=== PATIENT | female | born 1965 | race Caucasian/White ===

== ENCOUNTER 2016-10-01 21:48 | Observation (INO) ==
[2016-10-01] MEDS ORDERED: 0.9 % Sodium Chloride 1,000 ML IVC ONE (22:17)
[2016-10-01] MEDS ORDERED: Aspirin 325 MG TABLET PO ONE (22:17)
--- NOTE | 2016-10-01 22:20 | Emergency Department Note ---
Disposition Clinical Impression: Cerebrovascular accident Qualifiers: CVA mechanism: unspecified Qualified Code(s): I63.9 - Cerebral infarction, unspecified Disposition: Admitted As Inpatient Condition: Undetermined Time of Disposition: 23:40 Neuro HPI - General Chief Complaint: ED Neuro Symptoms/Deficit Stated Complaint: "Hx of Stroke/Feels Numb on R Side of Face/Arm" Time Seen by Provider: 10/01/16 22:10 Source: patient Mode of arrival: ambulatory Limitations: no limitations Nursing Notes Reviewed: Yes Vital Signs Reviewed: Yes - History of Present Illness HPI Narrative: 51-year-old female with history of CVA, multiple TIAs, arrives to [facility] emergency department complaining of right facial numbness, facial droop, slurring of speech, right upper extremity numbness and not a sharp feeling that started at 10:30 AM this morning when she woke up. Last known well was 8 AM this morning. The patient stated that she took her daily aspirin afterward. She arrives to [facility] emergency department with concerns for possible CVA. The patient has never received TPA in the past. The patient states her only deficits from previous CVA is "not quite as sharp" in her decision-making capacity. The patient denies any other complaints at this time. She is answering questions appropriately. She does have an obvious right facial droop and lack of blinking on the right eye, in addition the patient has decreased sensation in her right upper extremity only. The patient has good muscle strength in bilateral upper and lower extremities. The patient is not a TPA candidate due to the amount of time before being seen in the emergency department. Over 12 hours. Onset of Symptoms Date: 10/01/16 Onset of Symptoms Time: 10:30 Symptom Onset Unknown: No Location: speech, right face, right arm History of same: Yes Severity: moderate Quality: numbness Symptoms Improving: Yes Improves with: time Context: sudden onset On Anticoagulants: No Associated symptoms: Reports: denies other symptoms Treatments Prior to Arrival: none - Related Data Home Medications: Home Medications Medication Instructions Recorded Confirmed Aspirin 325 mg PO DAILY 02/12/15 08/28/15 Meloxicam [Mobic] 7.5 mg PO DAILY 02/12/15 08/28/15 Metaxalone [Skelaxin] 800 mg PO QID PRN 02/12/15 08/28/15 Atorvastatin [Lipitor] 10 mg PO DAILY 07/10/15 08/28/15 Previous Rx's Medication Instructions Recorded Hydrocodone/Acetaminophen [[place] 1 tab PO Q6H PRN #8 tab 08/21/15 5-325 Tablet] Allergies/Adverse Reactions: Allergies Allergy/AdvReac Type Severity Reaction Status Date / Time ibuprofen [From Motrin] Allergy Swelling Verified 08/20/15 09:54 of Lip/Tongue/Throat Latex, Natural Rubber Allergy Rash Verified 08/28/15 09:24 Silicone Allergy Rash Verified 08/28/15 09:24 All systems ED: reviewed and negative except as stated. Constitutional: Denies: fever, chills, weakness, weight change Eyes: Denies: eye pain, eye discharge, vision change ENT ED: Denies: ear pain, throat pain, dental pain, hearing loss, epistaxis, congestion, dysphagia Cardiovascular: Denies: chest pain, palpitations, dyspnea on exertion, edema, syncope Respiratory: Denies: cough, dyspnea, wheezes, hemoptysis, stridor Gastrointestinal: Denies: abdominal pain, nausea, vomiting, diarrhea, constipation, hematemesis, melena, hematochezia Musculoskeletal: Denies: back pain, neck pain, arthralgia, myalgia Integumentary: Denies: rash, abrasion, lesions Neurological: Reports: numbness. Denies: headache, weakness, paresthesias, confusion, abnormal gait, vertigo Past Medical History - Past Medical History Attestation: Yes The following information was validated with the patient. 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 - Social History Smoking Status: Current every day smoker Smokeless Tobacco Status: No Alcohol use: Reports: none Drug use: Reports: none Physical Exam - General Limitations: no limitations General appearance: alert, in no apparent distress - Head Head exam: atraumatic, normocephalic, normal inspection - Eye Eye exam: Present: PERRL, EOMI, other (Ptosis of right eye) - ENT ENT exam: other (Right sided facial droop) - Chest Chest inspection: Present: normal inspection, symmetric chest wall rise - Respiratory Respiratory exam: Present: normal lung sounds bilaterally - Cardiovascular Cardiovascular exam: Present: regular rate, normal rhythm, normal heart sounds - Abdominal Exam Abdominal exam: Present: soft, Non-Tender. Absent: tenderness, distention, guarding, rebound, rigidity - Extremities Exam Extremities exam: Present: normal inspection, full ROM. Absent: tenderness, pedal edema - Back Exam Back exam: Present: normal inspection, full ROM. Absent: tenderness - Neurological Exam Neurological exam: Present: alert, oriented X3 - Expanded Neurological Exam Patient oriented to: Present: person, place, time Speech: Present: fluid speech Cranial nerves: EOM function (II, III, IV, ): Abnormal Right, facial sensation (V): Abnormal Right, facial palsy (VII): Abnormal Right, gag reflex ( IX): Normal, spinal accessory function (XI): Normal, tongue deviation (XII): Normal Cerebellar function: finger to nose: Normal Cerebellar function: normal gait Motor strength - LUE: 5/5 Motor strength - RUE: 5/5 Motor strength - LLE: 5/5 Motor strength - RLE: 5/5 Upper motor neuron exam: sandoval neglect: Absent bilaterally Sensory exam upper extremity: light touch: Abnormal Right Sensory exam lower extremity: light touch: Normal Coma Scale Eye Opening: Spontaneous Coma Scale Motor Response: Obeys Commands Coma Scale Verbal Response: Oriented Coma Scale Total: 15 - Psychiatric Psychiatric exam: Present: normal affect, normal mood - Skin Skin exam: Present: warm, dry, intact, normal color Course Vital Signs Temperature 98.1 F 10/01/16 22:02 Pulse Rate 82 10/01/16 22:02 Respiratory Rate 16 10/01/16 22:02 Blood Pressure 138/86 10/01/16 22:02 O2 Sat by Pulse Oximetry 96 10/01/16 22:02 Temperature 98.1 F 10/01/16 22:02 Pulse Rate 82 10/01/16 22:02 Respiratory Rate 16 10/01/16 22:02 Blood Pressure 138/86 10/01/16 22:02 O2 Sat by Pulse Oximetry 96 10/01/16 22:02 Oxygen Delivery Oxygen Delivery Room Air Neuro Symptoms/Deficit - MDM Narrative Medical decision making narrative: Patient appears to have a CVA. No other acute findings noted. We will admit the patient to the hospitalist. The patient is unable to take by mouth aspirin given her dysphagia screen failure. The patient did take 25 mg aspirin earlier today. Patient accepted by Dr. Gage. - Medical Records Medical records reviewed: Yes I reviewed the patient's medical records. - Lab Data Lab results reviewed: Yes I reviewed the patient's lab results. Result diagrams: 10/01/16 22:55 10/01/16 22:55 Lab Results 10/01/16 10/01/16 10/01/16 Range/Units 22:04 22:55 22:55 WBC 8.3 (4.3-11.1) K/mcL RBC 3.99 (3.82-4.97) M/mcL Hgb 12.4 (11.5-15.4) g/dL Hct 36.3 (35.3-44.9) % MCV 91.0 (83.0-100.0) fL MCH 31.1 (28.0-33.3) pg MCHC 34.2 (31.6-35.5) g/dL RDW 13.0 (11.5-14.5) % Plt Count 181 (140-400) K/mcL MPV 10.0 (9.4-12.4) fL Immature Gran % 0.1 (0-4) % Seg Neutrophils % 53.0 % Lymphocytes % 37.7 % Monocytes % 6.2 % Eosinophils % 2.3 % Basophils % 0.7 % Neutrophils # 4.4 (1.6-8.9) K/mcL Lymphocytes # 3.1 (0.6-4.6) K/mcL Monocytes # 0.5 (0.0-1.3) K/mcL Eosinophils # 0.2 (0.0-0.6) K/mcL Basophils # 0.1 (0.0-0.2) K/mcL PT 11.5 (9.4-12.1) Seconds INR 1.1 APTT 30.2 (26.0-36.0) Seconds Sodium (136-145) mEq/L Potassium (3.5-4.5) mEq/L Chloride (98-109) mEq/L Carbon Dioxide (19-29) mEq/L BUN (7-20) mg/dL Creatinine (0.57-1.11) mg/dL Est GFR ( Amer) (> 60) Est GFR (Non-Af Amer) (> 60) BUN/Creatinine Ratio (6-26) Glucose (70-99) mg/dL POC Glucose 93 H (58-89) Calculated Osmolality (280-300) Calcium (8.6-10.8) mg/dL Total Bilirubin (0.2-1.2) mg/dL AST (5-34) Units/L ALT (0-55) Units/L Alkaline Phosphatase (38-126) Units/L Troponin I (0-0.03) ng/mL Serum Total Protein (6.0-8.3) g/dL Albumin (3.5-5.0) g/dL Globulin (2.4-3.5) g/dL Albumin/Globulin Ratio (1.1-2.2) 10/01/16 10/01/16 Range/Units 22:55 22:55 WBC (4.3-11.1) K/mcL RBC (3.82-4.97) M/mcL Hgb (11.5-15.4) g/dL Hct (35.3-44.9) % MCV (83.0-100.0) fL MCH (28.0-33.3) pg MCHC (31.6-35.5) g/dL RDW (11.5-14.5) % Plt Count (140-400) K/mcL MPV (9.4-12.4) fL Immature Gran % (0-4) % Seg Neutrophils % % Lymphocytes % % Monocytes % % Eosinophils % % Basophils % % Neutrophils # (1.6-8.9) K/mcL Lymphocytes # (0.6-4.6) K/mcL Monocytes # (0.0-1.3) K/mcL Eosinophils # (0.0-0.6) K/mcL Basophils # (0.0-0.2) K/mcL PT (9.4-12.1) Seconds INR APTT (26.0-36.0) Seconds Sodium 142 (136-145) mEq/L Potassium 3.7 (3.5-4.5) mEq/L Chloride 112 H (98-109) mEq/L Carbon Dioxide 22 (19-29) mEq/L BUN 18 (7-20) mg/dL Creatinine 0.76 (0.57-1.11) mg/dL Est GFR ( Amer) > 60 (> 60) Est GFR (Non-Af Amer) > 60 (> 60) BUN/Creatinine Ratio 24 (6-26) Glucose 88 (70-99) mg/dL POC Glucose (58-89) Calculated Osmolality 295 (280-300) Calcium 9.0 (8.6-10.8) mg/dL Total Bilirubin 0.2 (0.2-1.2) mg/dL AST 18 (5-34) Units/L ALT 18 (0-55) Units/L Alkaline Phosphatase 94 (38-126) Units/L Troponin I 0.01 (0-0.03) ng/mL Serum Total Protein 6.2 (6.0-8.3) g/dL Albumin 3.6 (3.5-5.0) g/dL Globulin 2.6 (2.4-3.5) g/dL Albumin/Globulin Ratio 1.4 (1.1-2.2) - Radiology Data Radiology results reviewed: Yes I reviewed the patient's radiology results. - EKG Data EKG attestation: Yes I reviewed and interpreted this EKG. EKG results narrative: Heart rate 73 bpm. SC interval 133 ms. QTc 408 ms. Normal axis. Normal sinus rhythm. No ST elevation or ST depression noted. EKG from 11/27/2015 similar in appearance. No acute changes noted. NIH Stroke Scale - Level of Consciousness LOC: Alert - LOC Questions LOC Questions: Answers both correctly - LOC Commands LOC Commands: Performs both correctly - Best Gaze Best Gaze: Normal - Visual Visual: No visual loss - Facial Palsy Facial Palsy: Partial, total, or near-total paralysis of lower face - Motor Arms Motor Arm-Left: No drift for 10 seconds Motor Arm-Right: No drift for 10 seconds - Motor Legs Motor Leg-Left: No drift for 5 seconds Motor Leg-Right: No drift for 5 seconds - Limb Ataxia Limb Ataxia: Normal, No Ataxia - Sensory Sensory: Mild to moderate loss, "not as sharp" - Best Language Best Language: No aphasia - Dysarthria Dysarthria: Mild, slurs some words - Extinction and Inattention Extinction and Inattention: Normal - NIHSS Total Score NIHSS Total Score: 4 Attestation Statement - Attestation Attestation: I examined this patient and my medical decision-making was reviewed with the SEGMENTAL WALL INSTALLER/PA/Advanced Practice Nurse/Resident Physician. I agree with the documented findings, disposition and treatment plan as described except to the extent set forth below. Patient to ED complaining of right facial numbness tingling in right arm weakness that started while she was taking a nap on the couch this morning. She fell asleep at 8 AM and woke up around 10:30 like that. Symptoms are improving. On examination she has 5 out of 5 strength in bilateral upper extremities. There is no drift. There is no ataxia. She does have a mild droop of the right side of the face. Plan. CT head stroke workup. Likely admission. CT negative. Patient admitted for further stroke workup. Failed dysphagia screening so no aspirin by mouth. Refuses rectal aspirin.
[2016-10-01 23:02] LABS: Basophils # 0.1 K/mcL (0.0-0.2); Basophils % 0.7 %; Eosinophils # 0.2 K/mcL (0.0-0.6); Eosinophils % 2.3 %; Hematocrit 36.3 % (35.3-44.9); Hemoglobin 12.4 g/dL (11.5-15.4); Immature Granulocytes % 0.1 % (0-4); Lymphocytes # 3.1 K/mcL (0.6-4.6); Lymphocytes % 37.7 %; Mean Corpuscular HGB Conc 34.2 g/dL (31.6-35.5); Mean Corpuscular Hemoglobin 31.1 pg (28.0-33.3); Monocytes # 0.5 K/mcL (0.0-1.3); Monocytes % 6.2 %; Neutrophils # 4.4 K/mcL (1.6-8.9); Platelet Count 181 K/mcL (140-400); Red Blood Count 3.99 M/mcL (3.82-4.97)
[2016-10-01 23:07] LABS: INR 1.1; Prothrombin Time 11.5 Seconds (9.4-12.1)
[2016-10-01 23:10] LABS: Activated Partial Thrombo Time 30.2 Seconds (26.0-36.0)
[2016-10-01 23:16] LABS: Alanine Aminotransferase 18 Units/L (0-55); Albumin 3.6 g/dL (3.5-5.0); Albumin/Globulin Ratio 1.4 (1.1-2.2); Alkaline Phosphatase 94 Units/L (38-126); Aspartate Amino Transferase 18 Units/L (5-34); BUN/Creatinine Ratio 24 (6-26); Bilirubin,Total 0.2 mg/dL (0.2-1.2); Blood Urea Nitrogen 18 mg/dL (7-20); Carbon Dioxide 22 mEq/L (19-29); Chloride 112 mEq/L (98-109); Globulin 2.6 g/dL (2.4-3.5); Glucose 88 mg/dL (70-99); Osmolality,Calculated 295 (280-300); Potassium 3.7 mEq/L (3.5-4.5); Sodium 142 mEq/L (136-145); Total Protein 6.2 g/dL (6.0-8.3); eGFR For African Americans > 60 (> 60); eGFR For Non-African Americans > 60 (> 60)
--- NOTE | 2016-10-02 01:16 | Internal Med History&Physical ---
Date of Encounter: 10/02/16 Time of Encounter: 01:15 Assessment and Plan (1) Carotid stenosis, bilateral Current visit: No Status: Acute she had carotid Doppler 2 months ago showing moderate carotid stenosis from 40 to 59% occlusion. 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 And therefore findings are more suggestive "lower motor neuron facial paralysis. Unfortunately patient has a loop recorder averting the ability to perform MRI of the brain. I will start the patient on prednisone 60 mg daily. Onset of symptoms 10 AM this morning after awakening from 2 hour sleep. She will continue on aspirin and Statin. I will ask neurology service for their input. Stroke workup and NIH stroke scale every 4 hours. She mentioned numbness and weakness in the right upper extremity but I could not appreciate any weakness on my exam Internal Medicine - H&P: HPI Chief complaint: CVA symptoms History of present illness: Ms. Remy is a 51 year old female with history of prior TIA/CVA without residual deficits presents to the emergency room today with the main complain of right facial numbness. Patient had a nap at 8 AM this morning woke up at 10 AM to find herself with several complains including numbness on the right side of the face, right facial droop in addition to numbness in the right upper extremity and weakness in the right upper extremity. She mentioned that she dropped a couple things with her right hand. No changes in her gait or speech. Denies any ear pain. She wants also noted by multiple family members that she is having problems closing her right eye. She denies any gait unsteadiness , headache blurry vision or neck pain. No fever chills cough expectoration or urinary symptoms. Past Med Surg Social Fam HX - Past Medical History Medical history: arthritis, cancer, coronary artery disease, CVA, DVT, TIA Psychiatric history: no psych history - Past Surgical History Surgical History: cancer surgery, hysterectomy - Social History Smoking Status: Current every day smoker Smokeless Tobacco Status: No Alcohol use: none Drug use: none - Family History Paternal Grandmother Hx Family Neurologic Disorders: Yes (stroke) Internal Medicine - H&P: Meds Aspirin 325 mg PO DAILY 02/12/15 [History] Meloxicam [Mobic] 7.5 mg PO DAILY 02/12/15 [History] Metaxalone [Skelaxin] 800 mg PO QID PRN 02/12/15 [History] Atorvastatin [Lipitor] 10 mg PO DAILY 07/10/15 [History] Hydrocodone/Acetaminophen [[place] 5-325 Tablet] 1 tab PO Q6H PRN #8 tab 08/21/15 [Rx] Allergies ibuprofen [From Motrin] Allergy (Verified 08/20/15 09:54) Swelling of Lip/Tongue/Throat Latex, Natural Rubber Allergy (Verified 08/28/15 09:24) Rash Silicone Allergy (Verified 08/28/15 09:24) Rash All Systems PM: A 10-system review of systems was performed and is negative for pertinent findings except as documented above in the HPI. Review of systems: 10 point review of systems is negative except for HPI - Constitutional Vitals: Temp Pulse Resp BP Pulse Ox 98.1 F 89 16 133/88 95 10/01/16 22:02 10/02/16 00:00 10/02/16 00:00 10/02/16 00:00 10/02/16 00:00 Exam: Gen.: patient is alert oriented times 3 not in distress. Cardiac: normal S1 S2 no additional sounds or murmurs chest: fair air entry. no active wheezing. No crackles or bronchial breathing. abdomen: soft nontender nondistended normal bowel sounds neuro: decreased sensation on right side of face. left lower motor neurone facial palsy. Internal Med - H&P Results - Labs CBC & Chem 7: 10/01/16 22:55 10/01/16 22:55
[2016-10-02] MEDS ORDERED: *HR* Morphine 2 MG/ML SYRINGE IVP ONE (02:38)
[2016-10-02] MEDS ORDERED: Hydrocortisone Sodium Succ 100 MG/2 ML VIAL IVP ONE (02:45)
[2016-10-02] MEDS: predniSONE 20 MG TABLET PO SCH ×2 (02:46→13:49)
[2016-10-02] MEDS: *HR* Heparin 5,000 UNIT/ML VIAL SQ SCH ×3 (05:58→22:01)
[2016-10-02] MEDS: Aspirin 81 MG TAB.CHEW PO SCH (13:49)
--- NOTE | 2016-10-02 16:36 | Neurology - Consult Note ---
Date of Encounter: 10/02/16 Time of Encounter: 16:27 Assessment and Plan (1) Facial droop Current Visit: Yes Status: Acute 51-year old woman admitted with right facial droop and difficulty swallowing, prior history of multiple episodes of "not feeling well" and TIAs and facial droop, no prior documentation of stroke, (although an MRI in 2016 was read as punctate lesions of stroke), with CT evidence of right frontal mass, etiology needs further evaluation. Differential diagnosis includes TIA/Stroke, post- seizure paralysis (from right frontal mass, likely meningioma), complicated migraine phenomenon. Give the whole story, the differential of post-seizure paralysis seems most likely, however, the sensoy change would not make sense. Prior CTAs only identified a few normal variants in cerebral circulation. It could not be Cool's palsy, since it would not resolve this quickly. MRI brain +/- contrast. Need to exclude stroke/tumor. Will do MRI today. If negative, will favor the seizure/aura phenomenon followed by palsy. Medication options will depend on etiology, as investigated above. Will follow. History of Present Illness Chief complaint: right facial droop HPI: Ms. Remy is a 51 year old female with prior history of reported blood clots in the leg, multiple TIAs, with complaints of right face weakness and sensory changes (?) that started 10:30 am of yesterday. however, she came to the hospital only at 10:30 pm and was evaluated. Initially, it was thought to be a Cool's palsy. But in follow-up rounding this morning stroke/TIA was questioned and Neurology was consulted. She was previously placed on coumadin and then changed to ASA in the outpatient setting for her prior TIAs and blood clot issues. She was recently fitted with a loop recorder to monitor her heart. She states that she now feels much better and wants to go home. But cardiology told her that if this was a stroke, Neurology has to provide input before she goes home. No chest pain, no shortness of breath, no weakness (except facial droop from yesterday), no difficulty eating/swallowing. No fevers/chills/neck pain. Her case was not discussed with telestroke with [facility] yesterday. She states that she has episodes of "not feeling well". A right frontal meningioma , which was also noted in the most recent CT head. Currently she is on ASA 325. Review of prior MRI brain images show that the two DWI positive hyperintense lesion are related to T2 hyperintensities, and not with ADC correlation. Past Med Surg Social Fam HX - Past Medical History Medical history: arthritis, cancer, coronary artery disease, CVA, DVT, TIA Psychiatric history: no psych history - Past Surgical History Surgical History: cancer surgery, hysterectomy - Social History Smoking Status: Current every day smoker Smokeless Tobacco Status: No Alcohol use: none Drug use: none - Family History Paternal Grandmother Hx Family Neurologic Disorders: Yes (stroke) Medications and Allergies Aspirin 325 mg PO DAILY 02/12/15 [History] Meloxicam [Mobic] 7.5 mg PO DAILY 02/12/15 [History] Metaxalone [Skelaxin] 800 mg PO QID PRN 02/12/15 [History] Atorvastatin [Lipitor] 40 mg PO HS 10/02/16 [History] Allergies ibuprofen [From Motrin] Allergy (Verified 08/20/15 09:54) Swelling of Lip/Tongue/Throat Latex, Natural Rubber Allergy (Verified 08/28/15 09:24) Rash Silicone Allergy (Verified 08/28/15 09:24) Rash All Systems: A 10-system review of systems was performed and is negative for pertinent findings except as documented above in the HPI. - Constitutional Constitutional ROS IM: as per HPI - Nose, Mouth, Throat Nose, mouth and throat: as per HPI - Cardiovascular Cardiovascular ROS IM: as per HPI - Respiratory Respiratory IM: as per HPI - Gastrointestinal Gastrointestinal: as per HPI - Genitourinary Genitourinary ROS: as per HPI - Musculoskeletal Musculoskeletal ROS IM: as per HPI - Neurological Neurological ROS: as per HPI Physical Examination - Vital Signs Vital Signs: Initial Vital Signs Temp Pulse Resp BP Pulse Ox 98.1 F 82 16 138/86 96 10/01/16 22:02 10/01/16 22:02 10/01/16 22:02 10/01/16 22:02 10/01/16 22:02 Vital Signs - 24 hr 10/01/16 22:02 10/02/16 00:00 10/02/16 01:24 Temperature 98.1 F Pulse Rate 82 89 Respiratory Rate 16 16 16 Blood Pressure 138/86 133/88 135/80 O2 Sat by Pulse Oximetry 96 95 10/02/16 01:43 10/02/16 01:57 10/02/16 04:09 Temperature 98.1 F 98.0 F Pulse Rate 70 69 94 Respiratory Rate 16 15 Blood Pressure 134/84 134/84 118/72 O2 Sat by Pulse Oximetry 96 95 10/02/16 05:55 10/02/16 08:00 10/02/16 11:40 Temperature 98.0 F 98 F 98.1 F Pulse Rate 94 93 74 Respiratory Rate 15 18 16 Blood Pressure 118/72 133/83 119/78 O2 Sat by Pulse Oximetry 93 95 10/02/16 13:55 Temperature 98.1 F Pulse Rate 74 Respiratory Rate 16 Blood Pressure 119/78 O2 Sat by Pulse Oximetry - Constitutional General appearance: comfortable - Neurologic Sensorimotor examination: intact (except right lower face sensory changes) Detailed motor examination: full strength in all major muscle groups Motor examination - right side: 5/5: deltoids, biceps, triceps, wrist flexion, wrist extension, carrier blower, hip flexors, tibialis Anterior, quadriceps, toe extension (EHL), plantarflexion Motor examination - left side: 5/5: deltoids, biceps, triceps, wrist flexion, wrist extension, hip flexors, carrier blower, quadriceps, tibialis Anterior, toe extension (EHL), plantarflexion Detailed sensory examination: intact (except for right lower face sensory changes) Reflex and gait examination: intact Reflexes: Biceps: 3+, Triceps: 3+, Brachioradialis: 3+, Patella: 3+ ( generalized hyper-reflexia), Achilles: 2+ (equivocally up going toe on the right.) Mental Status Examination: awake, alert, oriented to person, oriented to place, oriented to time, follows commands appropriately, answers questions appropriately, no agnosia, no aphasia, no aproxia Cranial nerve examination: PERRL, EOMI, visual lin intact, corneal reflexes brisk symmetrically, sensory to face intact (except in right lower face, as mentioned), mastication intact, no facial asymmetry is present (very mild right facial droop noted, on half smile), no dysarthria, hearing is intact symmetrically, soft palate elevates bilaterally upon phonation, gag reflex intact, flexes SCM and trapezius muscles symmetrically with full power, tongue protrudes midline, no atrophy or facial fasiculations present Cranial Nerve Exam: flattening of masolabic/folds: Right (lower face only) Cerebellar examination: no dysmetria, performs finger to nose and heel to jimenez symmetrically without ataxia, no gait ataxia, no truncal ataxia, no difficulty with rapid alternating movements Results - Laboratory Findings CBC and BMP: 10/01/16 22:55 10/01/16 22:55 Abnormal lab findings: Abnormal lab results Chloride 112 mEq/L (98-109) H 10/01/16 22:55 POC Glucose 93 (58-89) H 10/01/16 22:04 - Diagnostic Findings Additional findings: Lab Results 10/01/16 10/01/16 10/01/16 Range/Units 22:04 22:55 22:55 WBC 8.3 (4.3-11.1) K/mcL RBC 3.99 (3.82-4.97) M/mcL Hgb 12.4 (11.5-15.4) g/dL Hct 36.3 (35.3-44.9) % MCV 91.0 (83.0-100.0) fL MCH 31.1 (28.0-33.3) pg MCHC 34.2 (31.6-35.5) g/dL RDW 13.0 (11.5-14.5) % Plt Count 181 (140-400) K/mcL MPV 10.0 (9.4-12.4) fL Immature Gran % 0.1 (0-4) % Seg Neutrophils % 53.0 % Lymphocytes % 37.7 % Monocytes % 6.2 % Eosinophils % 2.3 % Basophils % 0.7 % Neutrophils # 4.4 (1.6-8.9) K/mcL Lymphocytes # 3.1 (0.6-4.6) K/mcL Monocytes # 0.5 (0.0-1.3) K/mcL Eosinophils # 0.2 (0.0-0.6) K/mcL Basophils # 0.1 (0.0-0.2) K/mcL PT 11.5 (9.4-12.1) Seconds INR 1.1 APTT 30.2 (26.0-36.0) Seconds Sodium (136-145) mEq/L Potassium (3.5-4.5) mEq/L Chloride (98-109) mEq/L Carbon Dioxide (19-29) mEq/L BUN (7-20) mg/dL Creatinine (0.57-1.11) mg/dL Est GFR ( Amer) (> 60) Est GFR (Non-Af Amer) (> 60) BUN/Creatinine Ratio (6-26) Glucose (70-99) mg/dL POC Glucose 93 H (58-89) Calculated Osmolality (280-300) Calcium (8.6-10.8) mg/dL Total Bilirubin (0.2-1.2) mg/dL AST (5-34) Units/L ALT (0-55) Units/L Alkaline Phosphatase (38-126) Units/L Troponin I (0-0.03) ng/mL Serum Total Protein (6.0-8.3) g/dL Albumin (3.5-5.0) g/dL Globulin (2.4-3.5) g/dL Albumin/Globulin Ratio (1.1-2.2) 10/01/16 10/01/16 Range/Units 22:55 22:55 WBC (4.3-11.1) K/mcL RBC (3.82-4.97) M/mcL Hgb (11.5-15.4) g/dL Hct (35.3-44.9) % MCV (83.0-100.0) fL MCH (28.0-33.3) pg MCHC (31.6-35.5) g/dL RDW (11.5-14.5) % Plt Count (140-400) K/mcL MPV (9.4-12.4) fL Immature Gran % (0-4) % Seg Neutrophils % % Lymphocytes % % Monocytes % % Eosinophils % % Basophils % % Neutrophils # (1.6-8.9) K/mcL Lymphocytes # (0.6-4.6) K/mcL Monocytes # (0.0-1.3) K/mcL Eosinophils # (0.0-0.6) K/mcL Basophils # (0.0-0.2) K/mcL PT (9.4-12.1) Seconds INR APTT (26.0-36.0) Seconds Sodium 142 (136-145) mEq/L Potassium 3.7 (3.5-4.5) mEq/L Chloride 112 H (98-109) mEq/L Carbon Dioxide 22 (19-29) mEq/L BUN 18 (7-20) mg/dL Creatinine 0.76 (0.57-1.11) mg/dL Est GFR ( Amer) > 60 (> 60) Est GFR (Non-Af Amer) > 60 (> 60) BUN/Creatinine Ratio 24 (6-26) Glucose 88 (70-99) mg/dL POC Glucose (58-89) Calculated Osmolality 295 (280-300) Calcium 9.0 (8.6-10.8) mg/dL Total Bilirubin 0.2 (0.2-1.2) mg/dL AST 18 (5-34) Units/L ALT 18 (0-55) Units/L Alkaline Phosphatase 94 (38-126) Units/L Troponin I 0.01 (0-0.03) ng/mL Serum Total Protein 6.2 (6.0-8.3) g/dL Albumin 3.6 (3.5-5.0) g/dL Globulin 2.6 (2.4-3.5) g/dL Albumin/Globulin Ratio 1.4 (1.1-2.2) Chest X-Ray 10/01/16 22:16 IMPRESSION: No acute process. D/ / Boo Quintero MD / Boo Quintero MD Interpreting Provider: Boo Quintero MD Head CT 10/01/16 22:16 IMPRESSION: No acute intracranial abnormality. No CT evidence of large vascular territorial infarct. Improving aeration of the right mastoid air cells suggesting resolving right mastoiditis. Stable right frontal meningioma. D/ / Boo Quintero MD / Boo Quintero MD Interpreting Provider: Boo Quintero MD Consult Discharge Plan - Plan Referrals: Daisha Castellon, DIRECT SERVICE WORKER [Primary Care Provider] -
--- NOTE | 2016-10-02 21:41 | Event Note ---
Date of Encounter: 10/02/16 Time of Encounter: 13:00 51 yo F with pmh of CAD, TIA, DVT and tobacco use who presents with right facial numbness, right facial droop and right sided weakness. All symptoms have resolved at this time. CT head was negative. Appreciate neurology input. PLAN: MRI brain. MRI cervical spine.
[2016-10-03 04:10] LABS: Basophils % 0.1 %; Eosinophils % 0.1 %; Hematocrit 33.8 % (35.3-44.9); Hemoglobin 11.5 g/dL (11.5-15.4); Immature Granulocytes % 0.3 % (0-4); Lymphocytes # 2.1 K/mcL (0.6-4.6); Mean Corpuscular Hemoglobin 31.2 pg (28.0-33.3); Mean Corpuscular Volume 91.6 fL (83.0-100.0); Mean Platelet Volume 10.5 fL (9.4-12.4); Monocytes # 0.6 K/mcL (0.0-1.3); Monocytes % 6.2 %; Neutrophils # 6.7 K/mcL (1.6-8.9); Platelet Count 156 K/mcL (140-400); Red Blood Count 3.69 M/mcL (3.82-4.97); Red Cell Distribution Width 12.9 % (11.5-14.5); Segmented Neutrophils % 71.3 %
[2016-10-03 04:24] LABS: BUN/Creatinine Ratio 23 (6-26); Blood Urea Nitrogen 18 mg/dL (7-20); Calcium 8.8 mg/dL (8.6-10.8); Carbon Dioxide 22 mEq/L (19-29); Chloride 113 mEq/L (98-109); Glucose 175 mg/dL (70-99); Osmolality,Calculated 298 (280-300); Potassium 3.9 mEq/L (3.5-4.5); Sodium 141 mEq/L (136-145); eGFR For African Americans > 60 (> 60); eGFR For Non-African Americans > 60 (> 60)
[2016-10-03] MEDS: *HR* Heparin 5,000 UNIT/ML VIAL SQ SCH (05:48)
[2016-10-03 06:44] VITALS: BP 138/74
[2016-10-03] MEDS: predniSONE 20 MG TABLET PO SCH (07:50)
[2016-10-03] MEDS: Artificial Tears SOLN 15 ML BOTTLE RIGHT EYE PRN ×2 (07:50→11:41)
[2016-10-03] MEDS: Aspirin 81 MG TAB.CHEW PO SCH (07:50)
--- NOTE | 2016-10-03 11:20 | Neurology Progress Note ---
Date of Encounter: 10/03/16 Time of Encounter: 11:06 Assessment and Plan (1) Facial droop Current Visit: Yes Status: Acute 51-year old woman admitted with right facial droop and difficulty swallowing ( dur to facial asymmetry and weakness), prior history of multiple episodes of "not feeling well" and TIAs and facial droop, no prior documentation of stroke, (although an MRI in 2016 was read as punctate lesions of stroke), with CT evidence of right frontal mass, etiology needs further evaluation. Differential diagnosis includes TIA/Stroke, post-seizure paralysis (from right frontal mass, likely meningioma), complicated migraine phenomenon (but no history of migraines/headaches). Give the whole story, the differential of post -seizure paralysis seems most likely, however, the sensory change would not make sense. Prior CTAs only identified a few normal variants in cerebral circulation. It could not be Cool's palsy, since it would not resolve this quickly. MRI brain results - please see HPI for discussion. Taken all together, these events are highly suspicious for seizures/aura generated from the right frontal meningioma. Given that she had a convulsive episode before, will start her on AEDs at this time. She will follow-up with Dr. Sellers and may need referral to Neurosurgery to remove the meningioma. she will need outpatient EEG/sleep-deprived EEG as well. From a strict standpoint, TIA cannot be excluded, but given the above argument favors seizure aura and post-aura phenomenon - coincident TIA, however, cannot be excluded, but seems less likely. Given the forehead sparing phenomenon, peripheral VII is less likely. Keppra load (1g), followed by keppra 500 mg po bid. Outpatient EEG - if negative, follow it up with sleep-deprived EEG Follow-up with Dr. Sellers in 1 week. May need referral to neurosurgery for right frontal meningioma. Loop recorder evaluation per Cardiology, per their plan. Call if questions. 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 She had MRI brain +/- contrast yesterday and her MRI brain was read as with stroke and right frontal meningioma. However, the reported "stroke lesion" does not have an ADC correlate and there is a prior T2 hyperintense lesion in that same region. In addition, a prior MRI done in Jun 2015, has the same lesions (which was also read as a stroke, which also did not have an ADC correlate). More history was elicited on the episodes of confusion - she states that she knows something is wrong, but she cannot figure out what is wrong and her brain takes a long time to process things and she is confused, following which she is very tired. At one time, she was woken up to her body shaking, and she had no control over it which lasted for a few minutes, although she was aware - she initially thought at the bed was shaking - and realized in fact it was she who was shaking. No other complaints today. Objective - Constitutional Vitals: Temp Pulse Resp BP Pulse Ox 98.2 F 63 16 138/74 94 10/03/16 06:42 10/03/16 06:42 10/03/16 06:42 10/03/16 06:42 10/03/16 06:42 Vital Signs - 24 hr 10/02/16 11:40 10/02/16 13:55 10/02/16 16:40 Temperature 98.1 F 98.1 F 98.2 F Pulse Rate 74 74 69 Respiratory Rate 16 16 16 Blood Pressure 119/78 119/78 149/90 O2 Sat by Pulse Oximetry 95 97 10/02/16 20:27 10/02/16 21:00 10/02/16 23:36 Temperature 98.2 F 98.9 F Pulse Rate 78 90 Respiratory Rate 20 20 Blood Pressure 139/89 132/71 O2 Sat by Pulse Oximetry 98 98 98 10/03/16 04:45 10/03/16 06:42 Temperature 98.9 F 98.2 F Pulse Rate 96 63 Respiratory Rate 16 16 Blood Pressure 113/64 138/74 O2 Sat by Pulse Oximetry 94 94 General appearance: Present: cooperative, A&O X 3, no acute distress, answers questions appropriately - Head Head exam: Present: atraumatic, normocephalic - Neurological Exam Sensorimotor examination: Present: intact Motor Examination: Present: full strength in all major muscle groups Motor examination - right side: 5/5: deltoids, biceps, triceps, wrist flexion, wrist extension, coroner, hip flexors, tibialis Anterior, quadriceps, toe extension (EHL), plantarflexion Motor examination - left side: 5/5: deltoids, biceps, triceps, wrist flexion, wrist extension, hip flexors, coroner, quadriceps, tibialis Anterior, toe extension (EHL), plantarflexion Sensation intact: Present: intact Reflex and gait examination: intact Reflexes: Biceps: 2+, Triceps: 2+, Brachioradialis: 2+, Patella: 2+, Achilles: 2 + Mental Status Examination: Present: awake, alert, oriented to person, oriented to place, oriented to time, follows commands appropriately, answers questions appropriately, no agnosia, no aphasia, no aproxia Cranial nerve examination: Present: PERRL, EOMI, visual lin intact, corneal reflexes brisk symmetrically, sensory to face intact, mastication intact, no facial asymmetry is present (better movement of the right face, better eye closure), no dysarthria, hearing is intact symmetrically, soft palate elevates bilaterally upon phonation, gag reflex intact, flexes SCM and trapezius muscles symmetrically with full power, tongue protrudes midline, no atrophy or facial fasiculations present Cerebellar examination: Present: no dysmetria, performs finger to nose and heel to jimenez symmetrically without ataxia, no gait ataxia, no truncal ataxia, no difficulty with rapid alternating movements - Expanded Neurological Exam Upper motor neuron: Babinski sign: Abnormal Left Results - Laboratory Findings CBC and BMP: 10/03/16 03:41 10/03/16 03:41 Abnormal lab findings: Abnormal lab results RBC 3.69 M/mcL (3.82-4.97) L 10/03/16 03:41 Hct 33.8 % (35.3-44.9) L 10/03/16 03:41 Chloride 113 mEq/L (98-109) H 10/03/16 03:41 Glucose 175 mg/dL (70-99) H 10/03/16 03:41 POC Glucose 93 (58-89) H 10/01/16 22:19 - Diagnostic Findings Additional findings: Chest X-Ray 10/01/16 22:16 IMPRESSION: No acute process. D/ / Boo Quintero MD / Boo Quintero MD Interpreting Provider: Boo Quintero MD Head CT 10/01/16 22:16 IMPRESSION: No acute intracranial abnormality. No CT evidence of large vascular territorial infarct. Improving aeration of the right mastoid air cells suggesting resolving right mastoiditis. Stable right frontal meningioma. D/ / Boo Quintero MD / Boo Quintero MD Interpreting Provider: Boo Quintero MD Brain MRI 10/02/16 16:23 IMPRESSION: 1. Acute 5 mm infarct within the subcortical white matter of the left precentral gyrus. 2. No acute intracranial hemorrhage. 3. Stable 9 x 9 mm meningioma overlying the right frontal lobe. 4. Mild chronic small vessel ischemic changes. The findings were sent to the [facility]iology [facility] at 7:53 pm on 10/02/2016to be communicated to a licensed caregiver. I have discussed the above brain MRI result with Radiologist today, and we both agree that the "acute infarct" call is not correct. Similar lesion was found in Jun 2015 MRI brain scan as well. No ADC correlate. There is a T2 lesion (so , likely T2 shine through). D/ / 10/02/2016 20:03:00 Saad Fisher MD / cat Interpreting Provider: Saad Fisher MD Cervical Spine MRI 10/02/16 16:23 IMPRESSION: 1. Broad posterior disc osteophyte complex and uncovertebral overgrowth at C5-6 resulting in mild spinal canal stenosis and severe bilateral neural foraminal narrowing. 2. Moderate bilateral neural foraminal narrowing at C4-5 secondary to a disc bulge and uncovertebral overgrowth. 3. Focal 2 mm left paracentral disc protrusion at C6-7 without significant spinal canal stenosis or neural foraminal narrowing. 4. Uncovertebral overgrowth mildly narrowing the right neural foramen at C3-4. D/ / 10/02/2016 20:04:37 Saad Fisher MD / cat Interpreting Provider: Saad Fisher MD Consult Discharge Plan - Plan Referrals: Daisha Castellon, TEAM LEADER/RESEARCH PSYCHOLOGIST [Primary Care Provider] -
[2016-10-03] MEDS ORDERED: levETIRAcetam 1,000 MG in 0.9 % Sodium Chloride 100 ML IVPB STA (11:24)
--- NOTE | 2016-10-03 11:59 | Discharge Summary ---
Date of Encounter: 10/03/16 Time of Encounter: 12:30 - Discharge Diagnosis (1) Facial droop Priority: Primary Status: Acute (2) Seizure Priority: Primary Status: Suspected (3) TIA (transient ischemic attack) Priority: Primary Status: Acute Qualifiers: Transient cerebral ischemia type: other Qualified Code(s): G45.8 - Other transient cerebral ischemic attacks and related syndromes (4) Tobacco use disorder Priority: Secondary Status: Chronic - Discharge Medications Prescriptions: levETIRAcetam [Keppra] 500 mg PO Q12HR #60 tablet Home Medications: Aspirin 325 mg PO DAILY 02/12/15 [History] Meloxicam [Mobic] 7.5 mg PO DAILY 02/12/15 [History] Metaxalone [Skelaxin] 800 mg PO QID PRN 02/12/15 [History] Atorvastatin [Lipitor] 40 mg PO HS 10/02/16 [History] levETIRAcetam [Keppra] 500 mg PO Q12HR #60 tablet 10/03/16 [Rx] Allergies/Adverse Reactions: Allergies ibuprofen [From Motrin] Allergy (Verified 08/20/15 09:54) Swelling of Lip/Tongue/Throat Latex, Natural Rubber Allergy (Verified 08/28/15 09:24) Rash Silicone Allergy (Verified 08/28/15 09:24) Rash Procedures/tests Complete & Pending: Procedures Performed prior 72 hours Category Date Time Status MR cervical spine wo/w con [MR] Stat MRI 10/02/16 16:23 Completed MR head/brain wo/w con [MR] Stat MRI 10/02/16 16:23 Completed EV echocardiogram Routine Y 10/02/16 00:58 Completed Date of admission: 10/02/16 00:00 Primary care physician: Daisha Castellon CNP Consults: 10/02/16 00:55 Consult to Neurology [CONS] Routine Consulting Provider: [facility] Reason for Consult: bells palsy? Call Completed: No Consult to Occupational Therapy [CONS] Routine Comment: Evaluate, develop and implement POC Reason for Consult: weakness Consult to Physical Therapy [CONS] Routine Comment: Evaluate, develop and implement POC Reason for Consult: weakness Consult to Speech Therapy [CONS] Routine Comment: Evaluate, develop and implement POC Reason for Consult: weakness Call Completed: No - Patient Status Disposition: Home, Self-Care Condition: Good Functional capacity at discharge: independent ambulation Overall status at discharge: patient is not back to baseline - Discharge Instructions Follow Up With: Daisha Castellon CNP [Primary Care Provider] - Clint Sellers MD [Partnered Physician] - (f/u in 1 week ) Additional Instructions: please do not drive, take a bath or swim for 6 months. f/u with dr Sellers in 1 week. - Diet and Activity Activity: other (do not drive for 6 months, do not take a bath or swimm for 6 months. ) Diet: low fat, low cholesterol, low salt diet Interval History: no complians. no weakness, no numbness. she is eager to go home. Hospital course: Ms. Remy is a 51 year old female with past medical history of CAD, and TIA who presents with right facial droop, difficulty swallowing and right-sided weakness. CT head and MRI brain were negative for stroke, stable 9 x 9 mm meningioma overlying the right frontal lobe. Her symptoms are suggestive of seizures/aura generated from the right frontal meningioma. Given that she had a convulsive episode before, will start her on AEDs at this time. Her symptoms resolved at discharge. PLAN: kepppra. She will follow-up with Dr. Sellers and may need referral to Neurosurgery to remove the meningioma. she will need outpatient EEG/sleep- deprived EEG as well. - Time Spent with Patient Total time spent providing and/or coordinating discharge services: - Constitutional Vitals: Temp Pulse Resp BP Pulse Ox 98.2 F 63 16 138/74 94 10/03/16 06:42 10/03/16 06:42 10/03/16 06:42 10/03/16 06:42 10/03/16 06:42 General appearance: Present: cooperative, pleasant, no acute distress, answers questions appropriately - Neck Neck exam general surgery: Present: supple, trachea midline. Absent: lymphadenopathy - Respiratory Respiratory exam: Present: CTAB - Cardiovascular Cardiovascular exam: Present: RRR - GI/Abdominal GI/Abdominal exam: Present: normal bowel sounds, soft. Absent: distended, tenderness - Extremities Exam Extremities exam: Absent: pedal edema - Neurological Exam Neurological exam: Present: alert, oriented X3, no focal deficits, strengths equal and symetr throughout - Skin Skin exam: Absent: rash
[2016-10-03] MEDS ORDERED: levETIRAcetam 250 MG TABLET PO SCH (18:00)
--- NOTE | 2016-10-04 15:06 | Electrocardiograph Report ---
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
== END 2016-10-03 14:15 | disposition home or self-care (01) ==
LOC: EMEROO 21:48 → 2NENU 21:48 → SUATTDRO 10-02 → 2NENU 10-02 01:15
PROVIDERS: ADMIT Hospitalist; ATTEND Internal Medicine